=== PATIENT | male | born 1970 | race Hispanic/Latino ===

== ENCOUNTER 2018-04-20 10:41 | Day surgery (SDC) | payer OTHER ==
[2018-04-18 14:50] VITALS: BP 140/73
[2018-04-18 15:08] LABS: CREATININE 0.7 mg/dL (0.5-1.5); POTASSIUM 4.2 mmol/L (3.5-5.1)
[2018-04-20] VITALS (14 sets, daily range): BP systolic 97–145; BP diastolic 46–80
[~2018-04-20] VITALS: Ht 177.8 cm; Wt 136.5 kg
[~2018-04-20 10:41] MED LIST: ATOR-2 PO; METF-444 PO
[2018-04-20] MEDS ORDERED: SODIUM CHLORIDE 0.9% 1000ML 1,000 ML IV ONE ×2 (11:20→13:46)
[2018-04-20] MEDS: CEFAZOLIN SODIUM 1 GM VIAL IVP PRN ×2 (11:40→16:40)
[2018-04-20] MEDS ORDERED: LISI2.5T2 PO (11:44)
[2018-04-20] MEDS ORDERED: ASPI-1197 PO (11:45)
[2018-04-20] MEDS ORDERED: EZET10 PO (11:46)
[2018-04-20] MEDS ORDERED: MIDAZOLAM HCL 1 MG/ML 2ML VIAL ONE (16:34)
[2018-04-20] MEDS ORDERED: PROPOFOL 10 MG/ML 20ML VIAL IV ONE ×2 (16:34→17:47)
[2018-04-20] MEDS ORDERED: FENTANYL CITRATE PF 50 MCG/1 ML 2ML VIAL ONE ×3 (16:34→17:47)
[2018-04-20] MEDS ORDERED: LIDOCAINE HCL 1% 20 ML VIAL ONE (16:41)
[2018-04-20] MEDS ORDERED: BUPIVACAINE/PF 0.25% 30ML VIAL IJ ONE (16:41)
[2018-04-20] MEDS ORDERED: BACITRACIN 28.4 GM OINT TP ONE (16:41)
[2018-04-20] MEDS ORDERED: LIDOCAINE PF 2% 5ML ABBOJECT ONE (17:47)
[2018-04-20] MEDS ORDERED: PHENYLEPHRINE HCL 10 MG/ML 1ML VIAL IV ONE (18:11)
[2018-04-20] MEDS ORDERED: SODIUM CHLORIDE 0.9% 10 ML VIAL ONE (18:11)
--- NOTE | 2018-04-20 18:50 | NUR ---
ASSESSMENT RECEIVED PT FROM PACU STAFF Burak ARMSTRONG RN. PT [id number]. DRSG TO PENIS DRY AND INTACT. NO BLEEDING, OOZING NOTED TO SITE. AT BEDSIDE.
--- NOTE | 2018-04-20 19:30 | NUR ---
DISCHARGE ORAL AND WRITTEN DISCHARGE INSTRUCTIONS GIVEN TO PT AND PTS . PRESCRIPTION GIVEN TO ALONG WITH INSTRUCTIONS ON MAINTAINING PENIS CLEAN AND DRY. BOTH VERBALIZED UNDERSTANDING.
== END 2018-04-20 19:35 | disposition home or self-care (01) ==
LOC: DAH 10:41
PROVIDERS: ATTEND Urology
DX: N47.1 Phimosis (principal); Z98.890 Other specified postprocedural states; Z79.899 Other long term (current) drug therapy; I10 Essential (primary) hypertension; E66.9 Obesity, unspecified; Z79.84 Long term (current) use of oral hypoglycemic drugs; Z68.41 Body mass index [BMI] 40.0-44.9, adult; E66.01 Morbid (severe) obesity due to excess calories; L83 Acanthosis nigricans; E29.1 Testicular hypofunction; Z83.3 Family history of diabetes mellitus; E11.628 Type 2 diabetes mellitus with other skin complications
CPT/HCPCS: 36415; 54161; 80048; 82948 ×2; 88304; A4218; A4510; A4600; J0690; J2001; J2250; J2370; J2704 ×2; J3010 ×3; J3490; J7030 ×3